=== PATIENT | female | born 1960 ===

== ENCOUNTER 2017-05-14 18:22 | Inpatient (IN) | payer MEDICAID ==
[2017-05-14 18:23] VITALS: BMI 24.4
[2017-05-14 19:27] LABS: BASO % 0.3 % (0.0-2.0); EOS % 6.7 % (0.0-4.0); HEMATOCRIT 34.2 % (34.0-47.0); LYMPH # 4.1 K/uL (1.0-4.3); LYMPH % 27.6 % (20.0-40.0); MEAN CORPUSCULAR HEMOGLOBIN 26.1 pg (27.0-31.0); MEAN CORPUSCULAR HGB CONC 32.3 g/dL (33.0-37.0); MEAN PLATELET VOLUME 8.6 fL (7.2-11.7); MONO # 0.6 K/uL (0.0-0.8); MONO % 4.1 % (0.0-10.0); NRBC % 0.1 % (0.0-2.0); RED CELL DISTRIBUTION WIDTH 14.8 % (11.5-14.5)
[2017-05-14 19:30] LABS: MEAN CELL VOLUME 80.6 fL (81.0-99.0); WHITE BLOOD COUNT 14.9 K/uL (4.8-10.8)
[2017-05-14 19:39] LABS: CHLORIDE 90 mmol/L (98-107); POTASSIUM 2.6 mmol/L (3.6-5.2); SODIUM 137 mmol/L (132-148)
[2017-05-14 19:41] LABS: GFR AFRICAN-AMERICAN > 60
[2017-05-14 19:42] LABS: ALB/GLOB RATIO 1.2 (1.0-2.1); ALKALINE PHOSPHATASE 70 U/L (38-126); ALT/SGPT 40 U/L (9-52); AST/SGOT 20 U/L (14-36); BILIRUBIN,TOTAL 0.5 mg/dL (0.2-1.3); BLOOD UREA NITROGEN 12 mg/dL (7-17); CALCIUM 9.4 mg/dl (8.6-10.4); CARBON DIOXIDE 31 mmol/L (22-30); GLUCOSE,RANDOM 130 mg/dL (65-105); TOTAL PROTEIN 7.5 g/dL (6.3-8.3)
[2017-05-14 19:54] LABS: URINE BACTERIA RARE (<OCC); URINE BILIRUBIN NEGATIVE (NEGATIVE); URINE BLOOD NEGATIVE (NEGATIVE); URINE COLOR Straw (YELLOW); URINE GLUCOSE (UA) NORMAL (Normal); URINE KETONE NEGATIVE (NEGATIVE); URINE LEUKOCYTE ESTERASE NEG Leu/uL (Negative); URINE PROTEIN NEGATIVE (NEGATIVE); URINE UROBILINOGEN NORMAL mg/dL (0.2-1.0); WBC URINE 2 /hpf (0-5)
--- NOTE | 2017-05-14 20:01 | RAD ---
HISTORY: cp COMPARISON: Chest x-ray performed 08/08/14 TECHNIQUE: Chest, one view. FINDINGS: Examination limited by habitus and hypoinflation. LUNGS: No focal consolidation. 5 mm left upper lobe probable calcified granuloma. Please note that chest x-ray has limited sensitivity for the detection of pulmonary masses. PLEURA: No significant pleural effusion identified. No definite pneumothorax . CARDIOVASCULAR: Cardiomegaly. Ectatic aorta. OSSEOUS STRUCTURES: No acute osseous abnormality identified. VISUALIZED UPPER ABDOMEN: Unremarkable. OTHER FINDINGS: None. IMPRESSION: Cardiomegaly. Ectatic aorta. 5 mm calcified granuloma.
--- NOTE | 2017-05-14 20:18 | C.PDOC ---
History Of Present Illness 56 year old female with a Hx of hypertension and hyperlipidemia presents to the ER with a complaint of substernal, intermittent, throbbing chest pain since last night. Patient reports she has never had similar episodes. She denies SOB , nausea, vomiting, abdominal pain, cough, fever, dysuria. Time Seen by Provider: 05/14/17 19:01 Chief Complaint (Nursing): Chest Pain History Per: Patient History/Exam Limitations: no limitations Onset/Duration Of Symptoms: Days Current Symptoms Are (Timing): Still Present Severity: Mild Associated Symptoms: denies: Nausea, Dyspnea, Diaphoresis, Syncope Modifying Factors: None Exacerbating Factors: None Alleviating Factors: None Past Medical History Reviewed: Historical Data, Nursing Documentation, Vital Signs Vital Signs: Last Vital Signs Temp 98.7 F 05/15/17 15:49 Pulse 74 05/15/17 15:49 Resp 18 05/15/17 15:49 BP 97/70 L 05/15/17 15:49 Pulse Ox 100 05/15/17 15:49 - Medical History PMH: HTN, Hypercholesterolemia Surgical History: No Surg Hx - [facility] Procedures CLOSURE SKIN & SUBCUTANEOUS NEC (08/06/14) LINEAR REP LID LACER (08/06/14) Family History: States: No Known Family Hx - Social History Hx Tobacco Use: Yes Hx Alcohol Use: Yes Hx Substance Use: No - Immunization History Hx Tetanus Toxoid Vaccination: No Hx Influenza Vaccination: No Hx Pneumococcal Vaccination: No Review Of Systems Except As Marked, All Systems Reviewed And Found Negative. Constitutional: Negative for: Fever, Chills Cardiovascular: Positive for: Chest Pain. Negative for: Palpitations Respiratory: Negative for: Cough, Shortness of Breath Gastrointestinal: Negative for: Nausea, Vomiting, Abdominal Pain, Diarrhea Physical Exam - Physical Exam Appears: Well, Non-toxic, No Acute Distress Skin: Normal Color, Warm, Dry Head: Normacephalic Oral Mucosa: Moist Chest: Symmetrical, No Tenderness Cardiovascular: Rhythm Regular Respiratory: Normal Breath Sounds, No Rales, No Rhonchi, No Wheezing Gastrointestinal/Abdominal: Normal Exam, Bowel Sounds, Soft, No Tenderness Extremity: Normal ROM, No Pedal Edema, No Calf Tenderness Pulses: Left Dorsalis Pedis: Normal, Right Dorsalis Pedis: Normal Neurological/Psych: Oriented x3 ED Course And Treatment - Laboratory Results Result Diagrams: 05/15/17 05:40 05/14/17 19:22 ECG: Interpreted By Me, Viewed By Me (sinus tachycardia 102 bpm, normal axis, T wave inversions V2-V6, Qtc 682 ms, no ST changes) ECG Interpretation: Abnormal O2 Sat by Pulse Oximetry: 99 (Room air) Pulse Ox Interpretation: Normal - Radiology CXR: Interpreted by Me, Viewed By Me CXR Interpretation: Yes: No Acute Disease. No: Infiltrates Progress Note: Blood work, EKG ordered and reviewed. PO Kdur ordered. - Physician Consult Information Physician Contacted: Aliza Brunner Outcome Of Conversation: Discussed patient with [employer] Dr. Brunner, who agrees with telemetry admission for chest pain, hypokalemia, abnormal EKG ( prolonged QTc and T wave inversions). Disposition - Disposition Disposition: HOSPITALIZED Disposition Time: 20:52 Condition: STABLE - POA Present On Arrival: None - Clinical Impression Clinical Impression: Chest pain, Hypokalemia, Abnormal EKG, QT prolongation - Scribe Statement The provider has reviewed the documentation as recorded by the Scribcleo Argueta All medical record entries made by the Scribe were at my direction and personally dictated by me. I have reviewed the chart and agree that the record accurately reflects my personal performance of the history, physical exam, medical decision making, and the department course for this patient. I have also personally directed, reviewed, and agree with the discharge instructions and disposition. Decision To Admit - Pt Status Changed To: Hospital Disposition Of: Inpatient - Admit Certification Admit to Inpatient:: After my assessment, the patient will require hospitalization for at least two midnights. This is because of the severity of symptoms shown, intensity of services needed, and/or the medical risk in this patient being treated as an outpatient. - InPatient: Physician Admission Certification: I certify that this patient requires 2 or more midnights of care for the following reason:: see notes - . Bed Request Type: Telemetry Admitting Physician: Aliza Brunner Patient Diagnosis: Chest pain, Hypokalemia, Abnormal EKG, QT prolongation
[2017-05-14] MEDS ORDERED: Potassium Chloride 20 mEq 40 MEQ/200 ML BAG IVPB ONE (20:19)
[2017-05-14 20:28] LABS: MAGNESIUM 1.9 mg/dL (1.6-2.3); PHOSPHOROUS 3.6 mg/dL (2.5-4.5)
[2017-05-14] MEDS ORDERED: Potassium Chloride 20 mEq ER Tab PO STA (20:51)
--- NOTE | 2017-05-14 21:46 | CP.PCM.HP ---
History of Present Illness - History of Present Illness History of Present Illness: COMPREHENSIVE HISTORY & PHYSICAL EXAM HPI 56 year old female with a Hx of hypertension and hyperlipidemia who presents to the ER with a complaint of substernal, intermittent, throbbing chest pain since last night. Patient reports she has never had Hx of similar episodes PAST HIST. HTN.HYPERLIPEDEMIA PERSONAL HIST: Smoking. N Alcohol. N Allergy N Travel_- . FAMILY HIST : ROS : Constitutional: Negative for weight change, chills, night sweats, fatigue and usage of assist device. Eyes: Negative for redness, swelling, itching, discharge, vision changes, blurry vision, double vision, glaucoma, cataracts, Ears: Negative for hearing loss, ringing, , tinnitus, vertigo Nose: Negative for rhinorrhea, stuffiness, sniffing, itching, postnasal drip, discoloration, nasal congestion and epistaxis. Throat: Negative for throat clearing, sore throat, hoarseness, difficulty swallowing and difficulty speaking. Respiratory: Negative for cough, , sputum production, chest tightness, wheezing, pleuritic chest pain ,daytime somnolence, chronic cough, hemoptysis, snoring at night, Cardiovascular: POS for chest pain, palpitations NO , orthopnea, PND, Edema of legs, leg cramps, angina, claudication, , irregular heartbeat, Neurology: Negative for irritability, muscle weakness, numbness and tingling, seizures, tremors, migraines, slurred speech, syncope, memory loss, mood changes , recurrent headaches Gastrointestinal: Negative for difficulty swallowing, diarrhea, constipation, black stools, rectal bleeding, nausea, flatulence, reflux, poor appetite, changes in bowel habits, abdominal pain Genitourinary: Negative for frequent urination, hematuria, discharge, incontinence, urinary retention, frequent UTI, Psychiatric: Negative for depression, anxiety/panic, suicidal tendencies, Musculoskeletal: Negative for swollen joints, back pain, , neck pain, morning stiffness of joints, . Skin: Negative for rash, ulcers, itching, dry skin and pigmented lesions. P/E: Constitutional: Appears stated age and in no apparent distress. Head: Normocephalic. Ears: External ear canals patent without inflammation. Tympanic membranes intact with normal light reflex and landmark. Eyes: Pupils are central, bilaterally equal, symmetrical and reacts to light with normal movements and no icterus or pallor. Nose: External nares are patent. Mucosa is pink Mouth-Throat: Good general appearance and condition. No post-pharyngeal/oropharyngeal erythema and tonsillar hypertrophy. Good dental hygiene. Neck-Lymphatic: Neck is supple with normal ROM, no thyromegaly, lymph nodes or masses. JVD is normal with no carotid bruit. Lungs: Clear to percussion and auscultation with bilateral normal air entry. Cardiovascular: S1 and S2 are normal with no murmurs, gallops and rub. GI Exam: No hepatomegaly. Abdomen is soft and non-tender. No Organomegaly , masses or hernias are evident and bowel sounds are normal and active. Neurology: Higher function and all cranial nerves intact, with no gross motor or sensory deficit. Superficial and deep reflexes are normal with downwards planters. No cerebellar deficit with normal gait. Musculoskeletal: No tender spots with normal curvature of the spine with no swelling or restricted ROM of the small and large joints. Extremities: Homans sign absent. Intact pulses with no pitting edema, calf tenderness or skin color changes. Skin: No rash, eruptions or abnormal skin pigmentation LAB/RADIOLOGY: ASSESMENT : POSSIBLE PERICARDITIS CORONARY SYND PLAN: SEE ORDERS Present on Admission - Present on Admission Any Indicators Present on Admission: No Past Patient History - Past Social History Smoking Status: Former Smoker - CARDIAC Hx Hypercholesterolemia: Yes Hx Hypertension: Yes - PSYCHIATRIC Hx Substance Use: No - SURGICAL HISTORY Hx Surgeries: Yes Other/Comment: FIBROID REMOVAL - ANESTHESIA Hx Anesthesia: Yes Hx Anesthesia Reactions: No Meds Allergies/Adverse Reactions: Allergies Allergy/AdvReac Type Severity Reaction Status Date / Time No Known Allergies Allergy Verified 05/14/17 18:36 Results - Vital Signs Recent Vital Signs: Last Vital Signs Temp 98.5 F 05/14/17 18:31 Pulse 104 H 05/14/17 18:31 Resp 16 05/14/17 18:31 BP 95/67 L 05/14/17 18:31 Pulse Ox 99 05/14/17 21:04 - Labs Result Diagrams: 05/15/17 05:40 05/14/17 19:22
[2017-05-15] MEDS ORDERED: Potassium Chloride 20 mEq ER Tab PO ONE (00:25)
[2017-05-15 05:58] LABS: BASO % 0.3 % (0.0-2.0); EOS # 0.9 K/uL (0.0-0.7); EOS % 7.3 % (0.0-4.0); HEMATOCRIT 31.3 % (34.0-47.0); LYMPH # 4.2 K/uL (1.0-4.3); LYMPH % 34.7 % (20.0-40.0); MEAN CELL VOLUME 80.7 fL (81.0-99.0); MEAN CORPUSCULAR HEMOGLOBIN 25.7 pg (27.0-31.0); MEAN CORPUSCULAR HGB CONC 31.9 g/dL (33.0-37.0); MEAN PLATELET VOLUME 8.4 fL (7.2-11.7); MONO # 0.5 K/uL (0.0-0.8); MONO % 4.2 % (0.0-10.0); RED CELL DISTRIBUTION WIDTH 15.6 % (11.5-14.5)
[2017-05-15] MEDS ORDERED: Enoxaparin 30 mg Syringe ONE (09:32)
[2017-05-15] MEDS ORDERED: OMEGA ACID ETHYL ESTERS PO SCH ×2 (10:00)
[2017-05-15] MEDS ORDERED: Enoxaparin 30 mg Syringe SC SCH (10:00)
[2017-05-15 11:15] VITALS: RESP 18
--- NOTE | 2017-05-15 15:15 | CP.PCM.PN ---
Subjective - Date & Time of Evaluation Date of Evaluation: 05/15/17 Time of Evaluation: 15:14 - Subjective Subjective: NO FURTHER CP CHECK ECHO ALL TNI ARE NEG Objective - Vital Signs/Intake and Output Vital Signs (last 24 hours): Temp Pulse Resp BP Pulse Ox 98.5 F 75 18 112/78 99 05/15/17 08:10 05/15/17 11:14 05/15/17 11:14 05/15/17 11:14 05/15/17 11:14 - Medications Medications: Current Medications Aspirin (Aspirin) 325 mg PO DAILY [facility] Last Admin: 05/15/17 09:38 Dose: 325 mg Enoxaparin Sodium (Lovenox) 30 mg SC DAILY [facility] Last Admin: 05/15/17 09:38 Dose: 30 mg Home Med (Vpazy-8-Xstr Ethyl Esters [[place] 3]) 500 mg PO DAILY [facility] Metoprolol Tartrate (Lopressor) 50 mg PO DAILY [facility] Last Admin: 05/15/17 09:38 Dose: 50 mg Rosuvastatin Calcium (Crestor) 5 mg PO [facility] - Labs Labs: 05/15/17 05:40
[2017-05-15 15:50] VITALS: BP 97/70; PULSE 74; TEMP 98.7
--- NOTE | 2017-05-16 20:10 | CP.PCM.DIS ---
Provider - Provider Date of Admission: 05/14/17 21:05 Attending physician: Aliza Brunner MD Time Spent in preparation of Discharge (in minutes): 10 Hospital Course - Lab Results Lab Results: Most Recent Lab Values WBC 12.0 K/uL (4.8-10.8) H 05/15/17 05:40 RBC 3.88 Mil/uL (3.80-5.20) 05/15/17 05:40 Hgb 10.0 g/dL (11.0-16.0) L 05/15/17 05:40 Hct 31.3 % (34.0-47.0) L 05/15/17 05:40 MCV 80.7 fL (81.0-99.0) L 05/15/17 05:40 MCH 25.7 pg (27.0-31.0) L 05/15/17 05:40 MCHC 31.9 g/dL (33.0-37.0) L 05/15/17 05:40 RDW 15.6 % (11.5-14.5) H 05/15/17 05:40 Plt Count 270 K/uL (130-400) 05/15/17 05:40 MPV 8.4 fL (7.2-11.7) 05/15/17 05:40 Neut % (Auto) 53.5 % (50.0-75.0) 05/15/17 05:40 Lymph % (Auto) 34.7 % (20.0-40.0) 05/15/17 05:40 [place] % (Auto) 4.2 % (0.0-10.0) 05/15/17 05:40 Eos % (Auto) 7.3 % (0.0-4.0) H 05/15/17 05:40 Baso % (Auto) 0.3 % (0.0-2.0) 05/15/17 05:40 Neut # 6.4 K/uL (1.8-7.0) 05/15/17 05:40 Lymph # 4.2 K/uL (1.0-4.3) 05/15/17 05:40 [place] # 0.5 K/uL (0.0-0.8) 05/15/17 05:40 Eos # 0.9 K/uL (0.0-0.7) H 05/15/17 05:40 Baso # 0.0 K/uL (0.0-0.2) 05/15/17 05:40 D-Dimer, Quantitative < 200.0 ng/mlDDU (0-243) 05/14/17 19:22 Sodium 137 mmol/L (132-148) 05/14/17 19:22 Potassium 2.6 mmol/L (3.6-5.2) L 05/14/17 19:22 Chloride 90 mmol/L (98-107) L 05/14/17 19:22 Carbon Dioxide 31 mmol/L (22-30) H 05/14/17 19:22 Anion Gap 19 (10-20) 05/14/17 19:22 BUN 12 mg/dL (7-17) 05/14/17 19:22 Creatinine 0.7 MG/DL (0.7-1.2) 05/14/17 19:22 Est GFR ( Amer) > 60 05/14/17 19:22 Est GFR (Non-Af Amer) > 60 05/14/17 19:22 POC Glucose (mg/dL) 126 mg/dL (65-110) H 05/14/17 19:20 Random Glucose 130 mg/dL (65-105) H 05/14/17 19:22 Calcium 9.4 mg/dl (8.6-10.4) 05/14/17 19:22 Phosphorus 3.6 mg/dL (2.5-4.5) 05/14/17 20:00 Magnesium 1.9 mg/dL (1.6-2.3) 05/14/17 20:00 Total Bilirubin 0.5 mg/dL (0.2-1.3) 05/14/17 19:22 AST 20 U/L (14-36) 05/14/17 19:22 ALT 40 U/L (9-52) 05/14/17 19:22 Alkaline Phosphatase 70 U/L (38-126) 05/14/17 19:22 Total Creatine Kinase 45 U/L (30-135) 05/15/17 11:16 CK-MB (Mass) < 0.22 ng/mL (0.0-3.38) 05/15/17 11:16 Troponin I < 0.0120 ng/mL (0.00-0.120) 05/14/17 19:22 Troponin I, Quant < 0.0120 ng/mL (0.00-0.120) 05/15/17 11:16 Total Protein 7.5 g/dL (6.3-8.3) 05/14/17 19:22 Albumin 4.1 g/dL (3.5-5.0) 05/14/17 19:22 Globulin 3.4 gm/dL (2.2-3.9) 05/14/17 19:22 Albumin/Globulin Ratio 1.2 (1.0-2.1) 05/14/17 19:22 Urine Color Straw (YELLOW) 05/14/17 19:32 Urine Clarity Clear (Clear) 05/14/17 19:32 Urine pH 7.0 (5.0-8.0) 05/14/17 19:32 Ur Specific [place] 1.005 (1.003-1.030) 05/14/17 19:32 Urine Protein Negative mg/dL (NEGATIVE) 05/14/17 19:32 Urine Glucose (UA) Normal mg/dL (Normal) 05/14/17 19:32 Urine Ketones Negative mg/dL (NEGATIVE) 05/14/17 19:32 Urine Blood Negative (NEGATIVE) 05/14/17 19:32 Urine Nitrate Negative (NEGATIVE) 05/14/17 19:32 Urine Bilirubin Negative (NEGATIVE) 05/14/17 19:32 Urine Urobilinogen Normal mg/dL (0.2-1.0) 05/14/17 19:32 Ur Leukocyte Esterase Neg [place]/uL (Negative) 05/14/17 19:32 Urine WBC (Auto) 2 /hpf (0-5) 05/14/17 19:32 Ur Squamous Epith Cells 4 /hpf (0-5) 05/14/17 19:32 Urine Bacteria Rare (<OCC) 05/14/17 19:32 Urine HCG, Qual Negative (NEGATIVE) 05/14/17 19:32 - Hospital Course Hospital Course: 56 year old female with a Hx of hypertension and hyperlipidemia who presents to the ER with a complaint of substernal, intermittent, throbbing chest pain since last night. Patient reports she has never had Hx of similar episodes PT SIGNED OUT AMA PER RN NOTES MD NOT INFORMED WILL CONTACT PT Discharge Plan - Follow Up Plan Condition: GOOD Disposition: AGAINST MEDICAL ADVICE
--- NOTE | 2017-05-17 17:43 | CARD ---
APPROVED REPORT EKG Measurement Heart [id number] <Conclusion> Sinus tachycardia Nonspecific T wave abnormality Prolonged QT Abnormal ECG
--- NOTE | 2017-05-17 19:00 | CARD ---
APPROVED REPORT EKG Measurement Heart [id number] <Conclusion> Normal sinus rhythm T wave abnormality, consider anterior ischemia Prolonged QT Abnormal ECG
[2017-05-19 16:00] VITALS: O2SAT 99
== END 2017-05-15 16:00 | disposition left against medical advice (07) | DRG 143 ==
LOC: C.ER 18:22 → C.9E 21:05
PROVIDERS: ADMIT Internal Medicine Cardiovascular Disease; ATTEND Internal Medicine Cardiovascular Disease
DX: R07.9 Chest pain, unspecified (principal); I10 Essential (primary) hypertension; E78.5 Hyperlipidemia, unspecified; Z87.891 Personal history of nicotine dependence

== ENCOUNTER 2017-08-21 01:08 | Emergency (ER) | payer MEDICAID ==
[2017-08-21 01:08] VITALS: BMI 24.4
[2017-08-21 01:23] VITALS: TEMP 98.2; O2SAT 98
--- NOTE | 2017-08-21 01:47 | C.PDOC ---
History Of Present Illness 57 year old female with a Hx of HTN and HLD presents to the ER with a complaint of high blood pressure. Patient reports her blood pressure medication was recently switched losartan to coreg. Denies fever or other complaints. Time Seen by Provider: 08/21/17 01:27 Chief Complaint (Nursing): High Blood Pressure History Per: Patient History/Exam Limitations: no limitations Onset/Duration Of Symptoms: Hrs Current Symptoms Are (Timing): Still Present Associated Symptoms: denies: Chest Pain, Dyspnea, Dizziness, Blurred Vision, Focal Weakness, Headache Quality Of Symptoms: Asymptomatic Exacerbating Factor(s): Pos: None Recent travel outside of the [place]: No Past Medical History Reviewed: Historical Data, Nursing Documentation, Vital Signs Vital Signs: Last Vital Signs Temp 98.2 F 08/21/17 01:19 Pulse 81 08/21/17 03:34 Resp 18 08/21/17 03:34 BP 132/81 08/21/17 03:34 Pulse Ox 98 08/21/17 04:31 - Medical History PMH: HTN, Hypercholesterolemia Surgical History: No Surg Hx - [facility] Procedures CLOSURE SKIN & SUBCUTANEOUS NEC (08/06/14) LINEAR REP LID LACER (08/06/14) Family History: States: Unknown Family Hx - Social History Hx Tobacco Use: Yes Hx Alcohol Use: Yes Hx Substance Use: No - Immunization History Hx Tetanus Toxoid Vaccination: No Hx Influenza Vaccination: No Hx Pneumococcal Vaccination: No Review Of Systems Constitutional: Negative for: Fever, Chills Cardiovascular: Positive for: Other (High blood pressure) Gastrointestinal: Negative for: Nausea, Vomiting, Diarrhea Physical Exam - Physical Exam Appears: Non-toxic, No Acute Distress Skin: Normal Color, Warm, Dry Head: Atraumatic, Normacephalic Eye(s): bilateral: Normal Inspection Oral Mucosa: Moist Neck: Normal, Supple Chest: Symmetrical, No Tenderness Cardiovascular: Rhythm Regular Respiratory: Normal Breath Sounds, No Rales, No Rhonchi, No Wheezing Gastrointestinal/Abdominal: Soft, No Tenderness Neurological/Psych: Oriented x3, Normal Speech, Other (No focal deficits) ED Course And Treatment - Laboratory Results Result Diagrams: 08/21/17 01:54 08/21/17 01:54 ECG: Interpreted By Me, Viewed By Me ECG Rhythm: Sinus Rhythm ECG Interpretation: Normal Interpretation Of ECG: Nonspecific ST/T changes, no interval changes Rate From EC O2 Sat by Pulse Oximetry: 98 (Room air) Pulse Ox Interpretation: Normal Medical Decision Making Medical Decision Making: EKG, blood work, and urinalysis ordered. aymptoamic htn pt reassesed b/p coming down. denies cardiopulm complaints. nonspecific luekocytosis. pt asking for dc home neuro intac.t no bueno, Disposition - Disposition Disposition: HOME/ ROUTINE Disposition Time: 04:00 Condition: STABLE Additional Instructions: please follow up with your doctor. return to er with worsening symptoms or concern.s Instructions: Leukocytosis (ED), Hypertension (ED) Forms: [employer] (Bengali) Print Language: JAPANESE - Clinical Impression Clinical Impression: Hypertension, Leukocytosis - Scribe Statement The provider has reviewed the documentation as recorded by the Scribcleo Argueta All medical record entries made by the Adelaidaibcleo were at my direction and personally dictated by me. I have reviewed the chart and agree that the record accurately reflects my personal performance of the history, physical exam, medical decision making, and the department course for this patient. I have also personally directed, reviewed, and agree with the discharge instructions and disposition.
[2017-08-21 01:57] LABS: BASO # 0.1 K/uL (0.0-0.2); BASO % 0.7 % (0.0-2.0); EOS # 1.2 K/uL (0.0-0.7); EOS % 8.8 % (0.0-4.0); HEMATOCRIT 34.1 % (34.0-47.0); LYMPH # 4.6 K/uL (1.0-4.3); MEAN CELL VOLUME 82.4 fL (81.0-99.0); MEAN CORPUSCULAR HEMOGLOBIN 27.5 pg (27.0-31.0); MEAN CORPUSCULAR HGB CONC 33.3 g/dL (33.0-37.0); MEAN PLATELET VOLUME 8.7 fL (7.2-11.7); MONO # 0.7 K/uL (0.0-0.8); MONO % 5.2 % (0.0-10.0); RED CELL DISTRIBUTION WIDTH 15.7 % (11.5-14.5)
[2017-08-21 02:06] LABS: INR 0.9
[2017-08-21 02:13] LABS: RBC URINE < 1 /hpf (0-3); URINE BACTERIA RARE (<OCC); URINE BILIRUBIN NEGATIVE (NEGATIVE); URINE BLOOD NEGATIVE (NEGATIVE); URINE COLOR Straw (YELLOW); URINE GLUCOSE (UA) NORMAL (Normal); URINE KETONE NEGATIVE (NEGATIVE); URINE LEUKOCYTE ESTERASE NEG Leu/uL (Negative); URINE PROTEIN NEGATIVE (NEGATIVE); URINE UROBILINOGEN NORMAL mg/dL (0.2-1.0); WBC URINE 1 /hpf (0-5)
[2017-08-21 02:19] VITALS: RESP 18
[2017-08-21 02:23] LABS: ALB/GLOB RATIO 1.1 (1.0-2.1); BILIRUBIN,TOTAL 0.6 mg/dL (0.2-1.3); CALCIUM 8.6 mg/dl (8.6-10.4); GFR AFRICAN-AMERICAN > 60; GLUCOSE,RANDOM 86 mg/dL (65-105)
[2017-08-21 02:24] LABS: ALKALINE PHOSPHATASE 46 U/L (38-126); ALT/SGPT 38 U/L (9-52); AST/SGOT 30 U/L (14-36); BLOOD UREA NITROGEN 16 mg/dL (7-17); CARBON DIOXIDE 28 mmol/L (22-30); CHLORIDE 90 mmol/L (98-107); POTASSIUM 3.7 mmol/L (3.6-5.2); SODIUM 130 mmol/L (132-148)
[2017-08-21 03:35] VITALS: BP 132/81; PULSE 81
== END 2017-08-21 03:35 | disposition home or self-care (01) ==
LOC: C.ER 01:08
DX: I10 Essential (primary) hypertension (principal); D72.829 Elevated white blood cell count, unspecified